=== PATIENT | female | born 1985 | race Caucasian/White ===

== ENCOUNTER 2017-09-21 11:26 | Emergency (ER) | payer MEDICAID ==
[~2017-09-21] VITALS: Ht 167.6 cm; Wt 47.6 kg
[2017-09-21 11:30] VITALS: Ht 167.6 cm; Wt 47.6 kg
[2017-09-21] MEDS ORDERED: MUPI22OI2 TOP (12:20)
--- NOTE | 2017-09-21 12:31 | ERD ---
ER Documentation Chief Complaint Chief Complaint per pt Bite on left thigh x 4days HPI 32-year-old female comes in with left eye skin irritation for the past 4 days. She describes that it started as a small pimple and became slightly larger and then in the shower last night she left the warm water run on it started to drain and been on its own. She states that she is afraid of spiders, and her friends had convinced her that this might of been a spider bite. Her pain is localized, achy, worse when she walks on it. She has not had any leg swelling, fevers or chills or trauma. ROS All systems reviewed and are negative except as per history of present illness. Medications Home Meds Active Scripts Mupirocin* (Bactroban*) 2% -22 Gram Oint...g., 1 APPLIC TOP BID for 7 Days, EA Prov:GERALDINE LOVETT PA-C 09/21/17 Allergies Allergies: Coded Allergies: amoxicillin (Unverified Allergy, Unknown, 09/21/17) PMhx/Soc History of Surgery: Yes (Cholecystectomy) Hx Miscellaneous Medical Probl: Yes (Migraines) Hx Tobacco Use: No Physical Exam Vitals Vital Signs Date Time Temp Pulse Resp B/P Pulse Ox O2 Delivery O2 Flow Rate FiO2 09/21/17 11:30 98.2 92 20 123/78 98 Physical Exam General: Well-developed, well-nourished. The patient appears in no acute distress. HEENT: Head is normocephalic, atraumatic. No scleral icterus. Neck: Supple. Nontender. Lungs: Clear to auscultation. Normal air movement. Heart: Regular rate and rhythm. S1 and S2 are normal. No murmurs, gallops, or rubs. Abdomen: Nondistended. Extremities: No clubbing or cyanosis. Moving extremities x 4. No weakness. Neurologic: Alert and oriented 3. No focal deficits. Normal speech and gait. Skin: There is an approximately 1 cm flattened boil, the skin overlying is dry, there is no necrosis, there is no warmth, no erythema, there is localized induration. No lymphatic streaking. Procedures/MDM 32-year-old female comes in with a boil to the skin that is already drained, there is no evidence of deep space infection, lymphatic streaking, cellulitis, necrotic tissue, spider bite. The patient will be given Bactroban to apply topically, she is advised to take Tylenol and ibuprofen for pain, and apply warm compresses for the next 2-3 days. Departure Diagnosis: Primary Impression: Boil, leg Condition: Good Patient Instructions: Abscess, Antiobiotic Treatment Only GERALDINE LOVETT PA-C Sep 21, 2017 12:31
== END 2017-09-21 13:29 | disposition home or self-care (01) ==
LOC: FTE 11:26
DX: L02.425 Furuncle of right lower limb (principal)
CPT/HCPCS: 99283